=== PATIENT | female | born 1960 | race Two or more races ===

== ENCOUNTER 2021-10-14 13:11 | Emergency (ER) | payer MEDICAID ==
[~2021-10-14] VITALS: Ht 160 cm; Wt 73.0 kg
[2021-10-14 13:16] VITALS: BP 165/75
== END 2021-10-14 14:06 | disposition home or self-care (01) ==
LOC: ER 13:11
DX: F41.9 Anxiety disorder, unspecified (principal); I10 Essential (primary) hypertension; Z88.0 Allergy status to penicillin
CPT/HCPCS: 93005; 99283